=== PATIENT | female | born 1980 | race Two or more races ===

== ENCOUNTER 2023-04-11 11:26 | Emergency (ER) | payer MEDICAID, OTHER ==
[~2023-04-11] VITALS: Ht 170.2 cm; Wt 66.7 kg
[2023-04-11] MEDS ORDERED: cloNIDine HCL 0.1 MG TAB PO ONE (13:45)
[2023-04-11] MEDS ORDERED: ALBUTEROL MEDNEB 2.5 mg/3ml NEB NEB ONE (14:30)
[2023-04-11 14:43] VITALS: BP 186/110; PULSE 89; RESP 18; TEMP 98.5; O2SAT 100
[2023-04-11] MEDS ORDERED: AZIT-43 PO (15:03)
[2023-04-11] MEDS ORDERED: DEXT60TA4 PO (15:03)
[2023-04-11] MEDS ORDERED: PRED20TA2 PO (15:04)
== END 2023-04-11 15:14 | disposition home or self-care (01) ==
LOC: ER 11:26
DX: J20.9 Acute bronchitis, unspecified (principal); J45.909 Unspecified asthma, uncomplicated
CPT/HCPCS: 71046; 94640

== ENCOUNTER 2024-08-13 06:03 | Emergency (ER) | payer MEDICAID ==
[~2024-08-13] VITALS: Ht 172.7 cm; Wt 81.7 kg
[~2024-08-13 06:03] MED LIST: ALBUAER3 IN; AZIT-43 PO; DEXT60TA4 PO; IBUP-1456 PO; LISI-275; LISI10TA34 PO; METH-1182 PO; PRED20TA2 PO
--- NOTE | 2024-08-13 06:59 | ED.PDOC ---
History of Present Illness HPI Comments 44-year-old female with PMHx HTN presents with a chief complaint of headache x 4 days. Patient states that she gets headaches weekly, but attributes it to her HTN. Patient reports that she recently ran out of her Losartan medication, but just recently got a refill this past Wednesday. Patient mentions that she does not check her BP at home. Chief Complaint: Flu like Time Seen by MD: 06:20 Primary Care Provider: Dr. Smith Reviewed Notes: Medications, Allergies Allergies: Coded Allergies: NO KNOWN ALLERGIES (Unverified , 04/11/23) Home Meds Active Scripts Prednisone (Prednisone) 20 Mg Tab, 20 MG PO DAILY@BREAKFAST for 5 Days, #5 MG Prov:VIVIANA VALENCIA NP 04/11/23 Dextromethorphan-Guaifenesin (Mucinex Dm Maximum Streng) 1 Tab Tab, 1 TAB PO BID PRN for 10 Days, #20 TAB 1 Refill Prov:VIVIANA VALENCIA NP 04/11/23 Azithromycin (Azithromycin) 250 Mg Tab, 250 MG PO DAILY MDD 500 for 5 Days, #6 TAB 0 Refills 2 TABLETS ORALLY ON DAY ONE, THEN 1 TABLET ORALLY DAILY FOR 4 DAYS Prov:VIVIANA VALENCIA NP 04/11/23 Albuterol Sulfate (VENTOLIN MDI) 90 Mcg Ih, 90 MCG IN PRN PRN, #1 INH 0 Refills Prov:SRIKANTH MC 04/21/22 Prednisone (Prednisone) 20 Mg Tab, 20 MG PO BID for 5 Days, #10 TAB 0 Refills Prov:SRIKANTH MC 04/21/22 Methocarbamol (Methocarbamol) 750 Mg Tab, 750 MG PO QHSP PRN, #20 TAB Prov:GINA YOUNG 07/31/21 Ibuprofen (Ibuprofen) 800 Mg Tab, 800 MG PO TID PRN, #30 TAB Prov:GINA YOUNG 07/31/21 Lisinopril (Lisinopril) 10 Mg Tab, 10 MG PO DAILY, #30 MG 1 Refill Prov:GEOVANNA ZUNIGA N.P. 06/04/13 Reported Medications Lisinopril (Lisinopril) 5 Mg Tab, DAILY 10/30/09 Information Source: Patient Mode of Arrival: Ambulatory Severity: Moderate Timing: Days Duration: Since onset Prehospital treatment: None Past Medical History PAST MEDICAL HISTORY: Asthma Surgical History: Denies all surgeries BAND HEAD SAW OPERATOR History: No Pertinent BAND HEAD SAW OPERATOR History Family History Family History: Reviewed,noncontributory to illness Social History Smoker: Non-Smoker Alcohol: Denies ETOH Use Drugs: Denies Drug Use Lives In: Home Constitutional: denies: chills, diaphoresis, fatigue, fever, malaise, sweats, weakness, others EENTM: denies: blurred vision, double vision, ear bleeding, ear discharge, ear drainage, ear pain, ear ringing, eye pain, eye redness, hearing loss, mouth pain, mouth swelling, nasal discharge, nose bleeding, nose congestion, nose pain, photophobia, tearing, throat pain, throat swelling, voice changes, others Respiratory: denies: cough, hemoptysis, orthopnea, SOB at rest, shortness of breath, SOB with excertion, stridor, wheezing, others Cardiovascular: denies: chest pain, dizzy spells, diaphoresis, Dyspnea on exertion, edema, irregular heart beat, left arm pain, lightheadedness, palpitations, PND, syncope, others Gastrointestinal: denies: abdomen distended, abdominal pain, blood streaked bowels, constipated, diarrhea, dysphagia, difficulty swallowing, hematemesis, melena, nausea, poor appetite, poor fluid intake, rectal bleeding, rectal pain, vomiting, others Genitourinary: denies: abnormal vagina bleeding, burning, dyspareunia, dysuria, flank pain, frequency, hematuria, incontinence, pain, , vagina discharge, urgency, others Neurological: reports: headache; denies: dizziness, fainting, left sided numbness, left sided weakness, numbness, paresthesia, pre-existing deficit, right sided numbness, right sided weakness, seizure, speech problems, tingling, tremors, weakness, others Musculoskeletal: denies: back pain, gout, joint pain, joint swelling, muscle pain, muscle stiffness, neck pain, others Integumetry: denies: bruises, change in color, change in hair/nails, dryness, laceration, lesions, lumps, rash, wounds, others Allergic/Immunocompromised: denies: Difficulty Healing, Frequent Infections, Hi ves, Itching, others Hematologic/Lymphatic: denies: anemia, blood clots, easy bleeding, easy bruising, swollen glands, others Endocrine: denies: excessive hunger, excessive sweating, excessive thirst, excessive urination, flushing, intolerance to cold, intolerance to heat, unexplained weight gain, unexplained weight loss, others Psychiatric: denies: anxiety, bipolar disorder, depression, hopeless, panic disorder, schizophrenia, sleepless, suicidal, others All Other Systems: Reviewed and Negative Physical Exam General Appearance: No Apparent Distress, Normal HEENT: Normal ENT Inspection, Pharynx Normal, TMs Normal Neck: Full Range of Motion, Non-Tender, Normal, Normal Inspection Respiratory: Chest Non-Tender, Lungs Clear, No Accessory Muscle Use, No Respiratory Distress, Normal Breath Sounds Cardiovascular: No Edema, No JVD, No Murmur, No Gallop, Normal Peripheral Pulses, Regular Rate/Rhythm Breast Exam: Deferred Gastrointestinal: No Organomegaly, Non Tender, No Pulsatile Mass, Normal Bowel Sounds, Soft Genitalia: Deferred Pelvic: Deferred Rectal: Deferred Extremities: No calf tenderness, Normal capillary refill, Normal inspection, Normal range of motion, Non-tender, No pedal edema Musculoskeletal : Apperance: Normal Neurologic: Alert, wheelage clerk II-XII nml as Tested, No Motor Deficits, Normal Affect, Normal Mood, No Sensory Deficits Cerebellar Function: Normal Reflexes: Normal Skin: Dry, Normal Color, Warm Lymphatic: No Adenopathy Was a procedure done? Was a procedure done?: No Differential Dx Considerations may include: hypertensive urgency, poorly controlled hypertension, anxiety, primary headache disorder X-Ray, Labs, Meds, VS Vital Signs Date Time Temp Pulse Resp B/P (MAP) Pulse Ox O2 Delivery O2 Flow Rate FiO2 08/13/24 06:52 79 16 153/92 (112) 97 08/13/24 06:10 98.0 97 95 155/90 (111) 16 98.0 Lab Test 08/13/24 06:16 Range/Units Influenza Type A Antigen Pending Influenza Type B Antigen Pending SARS-CoV-2 Antigen (Rapid) Pending Time of 1ST Reevaluation: 06:50 Reevaluation 1ST: Unchanged Patient Education/Counseling: Diagnosis, Treatment, Prognosis, Need For Follow Up Family Education/Counseling: No Family Present Additional Information Previous visit documents reviewed: None I discussed treatment and results with medical personnel and: Patient pt has weekly headaches chronically, which has no new features. she always attributes them to htn. however, her SBp is only in the 150s. i recommend that she follows up with her doctor for a primary headache disorder evaluation and treatments Departure 1 Departure Time of Disposition: 07:02 Impression: Primary Impression: Cephalgia Qualified Codes: R51.9 - Headache, unspecified Disposition: 01 HOME / SELF CARE / HOMELESS Condition: Good Discharged With: Self Critical Care Note Critical Care Time?: No Stability Stability form required: No Heart Score Heart Score: Heart Score Response (Comments) Value History N/A 0 EKG N/A 0 Age N/A 0 Risk Factors N/A 0 Troponin N/A 0 Total 0 I personally scribed for VALENTIN WELSH MD ([email or web address]) on 08/13/24 at 06:59. Electronically submitted by Merritt Chen ([email or web address]). VALENTIN WELSH MD Aug 13, 2024 06:59
[2024-08-13 07:02] VITALS: BP 139/94; TEMP 98.7
[2024-08-13] MEDS: ACETAMINOPHEN 325 MG TAB PO ONE (07:02)
[2024-08-13 07:03] VITALS: PULSE 89; RESP 17; O2SAT 100
[2024-08-13 07:32] LABS: Rapid Influenza A Negative (Negative); Rapid Influenza B Negative (Negative)
[2024-08-13 07:33] LABS: COVID19 ANTIGEN SOFIA FIA NEGATIVE (NEGATIVE)
== END 2024-08-13 07:07 | disposition home or self-care (01) ==
LOC: ER 06:03
DX: R51.9 Headache, unspecified (principal); J45.909 Unspecified asthma, uncomplicated; I10 Essential (primary) hypertension; Z79.52 Long term (current) use of systemic steroids; Z79.899 Other long term (current) drug therapy; Z20.822 Contact with and (suspected) exposure to COVID-19
CPT/HCPCS: 36415; 87426; 87804

== ENCOUNTER 2024-10-15 06:48 | Emergency (ER) | payer MEDICAID ==
[~2024-10-15] VITALS: Ht 170.2 cm; Wt 81.2 kg
--- NOTE | 2024-10-15 07:08 | ED.PDOC ---
GI ASSESSMENT HPI Comments 44 year old female presents to the ED with a chief complaint of abdominal pain onset 2 weeks. Patient was seen at [facility] on 10/04/24, had blood work and CT scan done, was diagnosed with possible ulcerative colitis, UTI, was prescribed antibiotics. Patient noticed abdominal pain worsen this morning, rates pain 9/10. She has also been experiencing diarrhea, last bowel movement was 3 days ago. She has GI consult on 10/18/24. Denies any PMHx as well as nausea, vomiting, diarrhea, fever, chills, cough, congestion, sore throat, runny nose, headache. No other symptoms or modifying factors present at this time. CT scan impression from [facility] 10/04/24 - moderate circumferential wall thickening edema of the terminal ileum and cecum with mild adjacent inflammatory changes. these findings are nonspecific, however may be seen in the setting of cecal colitis, terminal ileitis, or ulcerative colitis Time Seen by MD: 06:50 Primary Care Provider: Dr. Smith Reviewed Notes: Medications, Allergies Allergies: Coded Allergies: NO KNOWN ALLERGIES (Unverified , 04/11/23) Home Meds Active Scripts Prednisone (Prednisone) 20 Mg Tab, 20 MG PO DAILY@BREAKFAST for 5 Days, #5 MG Prov:VIVIANA VALENCIA NP 04/11/23 Dextromethorphan-Guaifenesin (Mucinex Dm Maximum Streng) 1 Tab Tab, 1 TAB PO BID PRN for 10 Days, #20 TAB 1 Refill Prov:VIVIANA VALENCIA NP 04/11/23 Azithromycin (Azithromycin) 250 Mg Tab, 250 MG PO DAILY MDD 500 for 5 Days, #6 TAB 0 Refills 2 TABLETS ORALLY ON DAY ONE, THEN 1 TABLET ORALLY DAILY FOR 4 DAYS Prov:VIVIANA VALENCIA NP 04/11/23 Albuterol Sulfate (VENTOLIN MDI) 90 Mcg Ih, 90 MCG IN PRN PRN, #1 INH 0 Refills Prov:SRIKANTH MC 04/21/22 Prednisone (Prednisone) 20 Mg Tab, 20 MG PO BID for 5 Days, #10 TAB 0 Refills Prov:SRIKANTH MC 04/21/22 Methocarbamol (Methocarbamol) 750 Mg Tab, 750 MG PO QHSP PRN, #20 TAB Prov:GINA YOUNG 07/31/21 Ibuprofen (Ibuprofen) 800 Mg Tab, 800 MG PO TID PRN, #30 TAB Prov:GINA YOUNG 07/31/21 Lisinopril (Lisinopril) 10 Mg Tab, 10 MG PO DAILY, #30 MG 1 Refill Prov:GEOVANNA ZUNIGA N.P. 06/04/13 Reported Medications Lisinopril (Lisinopril) 5 Mg Tab, DAILY 10/30/09 Information Source: Patient Mode of Arrival: Ambulatory Timing: Weeks Duration: Since onset Prehospital treatment: None Quality: Sharp Vomitus: None Severity: Moderate Recent: None Recent Hx of: None Pain Location: Other (hypogastric) Modifying Factors: Nothing Associated sign and symptoms: Constipation, Abdominal Pain Past Medical History PAST MEDICAL HISTORY: Asthma, DM, HTN Surgical History: Appendectomy BUNDLE CUTTER History: No Pertinent BUNDLE CUTTER History Family History Family History: Reviewed,noncontributory to illness Social History Smoker: Non-Smoker Alcohol: Denies ETOH Use Drugs: Denies Drug Use Lives In: Home Constitutional: denies: chills, diaphoresis, fatigue, fever, malaise, sweats, weakness, others EENTM: denies: blurred vision, double vision, ear bleeding, ear discharge, ear drainage, ear pain, ear ringing, eye pain, eye redness, hearing loss, mouth pain, mouth swelling, nasal discharge, nose bleeding, nose congestion, nose pain, photophobia, tearing, throat pain, throat swelling, voice changes, others Respiratory: denies: cough, hemoptysis, orthopnea, SOB at rest, shortness of breath, SOB with excertion, stridor, wheezing, others Cardiovascular: denies: chest pain, dizzy spells, diaphoresis, Dyspnea on exertion, edema, irregular heart beat, left arm pain, lightheadedness, p alpitations, PND, syncope, others Gastrointestinal: reports: abdominal pain, constipated; denies: abdomen distended, blood streaked bowels, diarrhea, dysphagia, difficulty swallowing, hematemesis, melena, nausea, poor appetite, poor fluid intake, rectal bleeding, rectal pain, vomiting, others Genitourinary: denies: abnormal vagina bleeding, burning, dyspareunia, dysuria, flank pain, frequency, hematuria, incontinence, pain, , vagina discharge, urgency, others Neurological: denies: dizziness, fainting, headache, left sided numbness, left sided weakness, numbness, paresthesia, pre-existing deficit, right sided numbness, right sided weakness, seizure, speech problems, tingling, tremors, weakness, others Musculoskeletal: denies: back pain, gout, joint pain, joint swelling, muscle pain, muscle stiffness, neck pain, others Integumetry: denies: bruises, change in color, change in hair/nails, dryness, laceration, lesions, lumps, rash, wounds, others Allergic/Immunocompromised: denies: Difficulty Healing, Frequent Infections, Hives, Itching, others Hematologic/Lymphatic: denies: anemia, blood clots, easy bleeding, easy bruising, swollen glands, others Endocrine: denies: excessive hunger, excessive sweating, excessive thirst, excessive urination, flushing, intolerance to cold, intolerance to heat, u nexplained weight gain, unexplained weight loss, others Psychiatric: denies: anxiety, bipolar disorder, depression, hopeless, panic disorder, schizophrenia, sleepless, suicidal, others All Other Systems: Reviewed and Negative Physical Exam General Appearance: No Apparent Distress, Normal HEENT: Normal ENT Inspection, Pharynx Normal, TMs Normal Neck: Full Range of Motion, Non-Tender, Normal, Normal Inspection Respiratory: Chest Non-Tender, Lungs Clear, No Accessory Muscle Use, No Respiratory Distress, Normal Breath Sounds Cardiovascular: No Edema, No JVD, No Murmur, No Gallop, Normal Peripheral P ulses, Regular Rate/Rhythm Breast Exam: Deferred Gastrointestinal: No Organomegaly, Non Tender, No Pulsatile Mass, Normal Bowel Sounds, Soft Genitalia: Deferred Pelvic: Deferred Rectal: Deferred Extremities: No calf tenderness, Normal capillary refill, Normal inspection, Normal range of motion, Non-tender, No pedal edema Musculoskeletal : Apperance: Normal Neurologic: Alert, semiconductor packages tester II-XII nml as Tested, No Motor Deficits, Normal Affect, Normal Mood, No Sensory Deficits Cerebellar Function: Normal Reflexes: Normal Skin: Dry, Normal Color, Warm Lymphatic: No Adenopathy Was a procedure done? Was a procedure done?: No GI differential Dx Differential Diagnosis: Constipation, Gastroenteritis, Electrolyte Imbalance Other Differential Diagnosis ulcerative colitis, cecal colitis, terminal ileitis X-Ray, Labs, Meds, VS Vital Signs Date Time Temp Pulse Resp B/P (MAP) Pulse Ox O2 Delivery O2 Flow Rate FiO2 10/15/24 08:35 73 16 126/80 10/15/24 08:16 98.0 70 20 133/84 (100) 100 98.0 10/15/24 08:07 70 20 133/84 10/15/24 07:40 Room Air* 0 21 10/15/24 07:08 98.0 80 16 151/88 (109) 98 98.0 Lab Test 10/15/24 07:39 10/15/24 07:36 Range/Units Urine Color Light-yellow Yellow Urine Clarity Hazy H Clear Urine pH 5.5 5.0-9.0 Urine Specific [place] 1.016 1.001-1.035 Urine Protein Negative Negative Urine Ketones Negative Negative Urine Blood Trace H Negative /uL Urine Nitrite Negative Negative Urine Bilirubin Negative Negative Urine Urobilinogen Normal Negative mg/dL Urine Leukocyte Esterase 2+ Negative /uL Urine RBC 2 0 - 4 /hpf Urine Microscopic WBC 4 0-5 /HPF Urine Squamous Epithelial Cells Mod <5 /hpf Urine Bacteria Few H None Seen /hpf Urine Glucose Normal Normal mg/dL White Blood Count 5.6 4.4-10.8 10^3/uL Red Blood Count 5.66 H 4.0-5.20 10^6/uL Hemoglobin 10.6 L 12.2-16.2 g/dL Hematocrit 33.8 L 36.0-46.0 % Mean Corpuscular Volume 59.7 L 80.0-100.0 fL Mean Corpuscular Hemoglobin 18.8 L 28.0-32.0 pg Mean Corpuscular Hemoglobin Concent 31.5 L 32.0-36.0 g/dL Red Cell Distribution Width 23.1 H 11.8-14.3 % Platelet Count 359 140-450 10^3/uL Mean Platelet Volume 8.5 6.9-10.8 fL Neutrophils (%) (Auto) 67.5 37.0-80.0 % Lymphocytes (%) (Auto) 22.1 10.0-50.0 % Monocytes (%) (Auto) 7.8 0.0-12.0 % Eosinophils (%) (Auto) 1.3 0.0-7.0 % Basophils (%) (Auto) 1.3 0.0-2.0 % Neutrophils # (Auto) 3.8 1.6-8.6 10 ^3/uL Lymphocytes # (Auto) 1.2 0.4-5.4 10 ^3/uL Monocytes # (Auto) 0.4 0-1.3 10 ^3/uL Eosinophils # (Auto) 0.1 0-0.8 10 ^3/uL Basophils # (Auto) 0.1 0-0.2 10 ^3/uL Nucleated Red Blood Cells 0.0 % Sodium Level 136 136-145 mmol/L Potassium Level 4.2 3.5-5.1 mmol/L Chloride Level 104 98-107 mmol/L Carbon Dioxide Level 25 20-31 mmol/L Anion Gap 7 5-15 Blood Urea Nitrogen 11 9-23 mg/dL Creatinine 0.64 0.550-1.02 mg/dL Glomerular Filtration Rate Calc 112 >90 mL/min BUN/Creatinine Ratio 17.2 10.0-20.0 Serum Glucose 111 H 74-106 mg/dL Calcium Level 9.8 8.7-10.4 mg/dL Total Bilirubin 0.7 0.2-1.0 mg/dL Aspartate Amino Transferase (AST) 19 13-40 U/L Alanine Aminotransferase (ALT) 26 7-40 U/L Alkaline Phosphatase 79 46-116 U/L Total Protein 7.0 5.7-8.2 g/dL Albumin 4.5 3.2-4.8 g/dL Lipase 30 12-53 U/L Current Medications Medications (Trade) Dose Ordered Sig/Nidia Route Start Time Stop Time Status Last Admin Ondansetron HCl (Zofran) 4 mg ONCE ONCE IV 10/15/24 07:15 10/15/24 07:16 DC 10/15/24 08:05 Morphine Sulfate 4 mg ONCE ONCE IV 10/15/24 07:15 10/15/24 07:16 DC 10/15/24 08:07 Methylprednisolone Sodium Succinate (Solu Medrol) 125 mg ONCE ONCE IV 10/15/24 07:15 10/15/24 07:16 DC 10/15/24 08:05 44-year-old female presents here with diffuse abdominal pain. Patient states that she was at [facility] approximately a week and a half ago. She has a copy of the CT scan from there. It demonstrates terminal ileitis, differential including ulcerative colitis. She has a GI appointment in 3 days. At this time I have done blood work in the ER including a CBC and a CMP which are within normal limits. I have given her morphine Zofran and 1 dose of Solu-Medrol. She is feeling better however she does continue to have some nausea medicine which I have given her additional dose. Abdomen is soft and nontender doubt small bowel obstruction doubt emergent pathology. At this time she is agreeable to discharge home and is agreeable to using [place] and Colace in the meantime. Strongly advised her it was very important to follow up with the GI physician. Patient agreeable to the plan. Advised to return if her symptoms worsen or persist. Time of 1ST Reevaluation: 07:20 Reevaluation 1ST: Unchanged Time of 2ND Reevaluation: 10:16 Reevaluation 2ND: Improved Patient Education/Counseling: Diagnosis, Treatment, Prognosis, Need For Follow Up Family Education/Counseling: No Family Present Departure 1 Departure Time of Disposition: 10:17 Impression: Primary Impression: Non-specific colitis Disposition: 01 HOME / SELF CARE / HOMELESS Condition: Fair Additional Instructions: Follow up with GI physician later this week as scheduled. Please return to the ER if symptoms worsen or persist. e-Prescriptions Docusate Sodium (Colace) 100 Mg Cap 1 CAP PO BID for 5 Days, #10 CAP Prov: ORLIN DORANTES MD 10/15/24 Hydrocodone-Acetaminophen (Hydrocodone Bitartrate/AC 5-325 mg) 1 Tab Tab 1 TAB PO Q6HPRN PRN, #12 TAB Prov: ORLIN DORANTES MD 10/15/24 Critical Care Note Critical Care Time?: No Stability Stability form required: No Heart Score Heart Score: Heart Score Response (Comments) Value History N/A 0 EKG N/A 0 Age N/A 0 Risk Factors N/A 0 Troponin N/A 0 Total 0 I personally scribed for ORLIN DORANTES MD ([email or web address]) on 10/15/24 at 07:51. Electronically submitted by Nancy Mercado ([email or web address]). ORLIN DORANTES MD October 15, 2024 07:08
[2024-10-15 07:53] LABS: Urine Bacteria FEW /hpf (None Seen); Urine Blood TRACE /uL (Negative); Urine Clarity Hazy (Clear); Urine Color Light-Yellow (Yellow); Urine Protein, UAD Negative (Negative); Urine Specific Gravity 1.016 (1.001-1.035); Urine Squamous Epithelial Cell MOD /hpf (<5); Urine Urobilinogen Normal (Negative); Urine WBC 4 /HPF (0-5); Urine pH 5.5 (5.0-9.0)
[2024-10-15 07:54] LABS: Basophils # (auto) 0.1 10 ^3/uL (0-0.2); Basophils % (auto) 1.3 % (0.0-2.0); Eosinophils # (auto) 0.1 10 ^3/uL (0-0.8); Lymphocytes # (auto) 1.2 10 ^3/uL (0.4-5.4); Monocytes # (auto) 0.4 10 ^3/uL (0-1.3); White Blood Cell 5.6 10^3/uL (4.4-10.8)
[2024-10-15 07:55] LABS: Eosinophils % (auto) 1.3 % (0.0-7.0); Hematocrit 33.8 % (36.0-46.0); Hemoglobin 10.6 g/dL (12.2-16.2); Lymphocytes % (auto) 22.1 % (10.0-50.0); Mean Corpuscular Hemoglobin 18.8 pg (28.0-32.0); Mean Corpuscular Hgb Conc. 31.5 g/dL (32.0-36.0); Mean Corpuscular Volume 59.7 fL (80.0-100.0); Monocytes % (auto) 7.8 % (0.0-12.0); Neutrophils # (auto) 3.8 10 ^3/uL (1.6-8.6); Neutrophils % (auto) 67.5 % (37.0-80.0); Platelet Count (auto) 359 10^3/uL (140-450); Red Blood Cells 5.66 10^6/uL (4.0-5.20); Red Cell Distribution Width 23.1 % (11.8-14.3)
[2024-10-15] MEDS: ONDANSETRON HCL 4 MG/2 ML VIAL IV ONE ×2 (08:05→10:30)
[2024-10-15] MEDS: methylPREDNISolone SOD SUCC 125 MG/2 ML VL IV ONE (08:05)
[2024-10-15] MEDS: MORPHINE SULFATE 4 MG/ML SYR/VIAL IV ONE (08:07)
[2024-10-15 08:09] LABS: Alanine Aminotransferase 26 U/L (7-40); Albumin 4.5 g/dL (3.2-4.8); Alkaline Phosphatase 79 U/L (46-116); Anion Gap 7 (5-15); Aspartate Aminotransferase 19 U/L (13-40); BUN/Creatinine Ratio 17.2 (10.0-20.0); Blood Urea Nitrogen 11 mg/dL (9-23); Calcium 9.8 mg/dL (8.7-10.4); Carbon Dioxide 25 mmol/L (20-31); Chloride 104 mmol/L (98-107); Potassium 4.2 mmol/L (3.5-5.1); Sodium 136 mmol/L (136-145)
[2024-10-15 08:10] LABS: Bilirubin, Total 0.7 mg/dL (0.2-1.0)
[2024-10-15 08:14] LABS: Glucose 111 mg/dL (74-106)
[2024-10-15 08:16] VITALS: TEMP 98
[2024-10-15 08:30] LABS: Lipase 30 U/L (12-53)
[2024-10-15 10:00] VITALS: BP 121/78; PULSE 70; RESP 13; O2SAT 97
[2024-10-15] MEDS ORDERED: HYDR-4902 PO (10:20)
[2024-10-15] MEDS ORDERED: DOCU-94 PO (10:20)
== END 2024-10-15 10:34 | disposition home or self-care (01) ==
LOC: ER 06:48
DX: K52.9 Noninfective gastroenteritis and colitis, unspecified (principal); J45.909 Unspecified asthma, uncomplicated; E11.9 Type 2 diabetes mellitus without complications; I10 Essential (primary) hypertension; Z90.49 Acquired absence of other specified parts of digestive tract; Z79.899 Other long term (current) drug therapy; Z79.52 Long term (current) use of systemic steroids
CPT/HCPCS: 36415; 80053; 81001; 83690; 85025; 96374; 96375; 96376; 99284; J2270; J2405; J2919

== ENCOUNTER 2024-10-23 02:24 | Emergency (ER) | payer MEDICAID ==
[~2024-10-23] VITALS: Ht 170.2 cm; Wt 79.7 kg
[~2024-10-23 02:24] MED LIST changes: +DOCU-94 PO; +HYDR-4902 PO
--- NOTE | 2024-10-23 03:04 | ED.PDOC ---
Back pain HPI HPI Comments C/C: PATIENT STATES THAT SHE HAS PAIN AND SWELLING IN BILATERAL FEET FOR THE PAST 2 DAYS. PATIENT STANDS ON HER FEET ALL DAY FOR WORK. NO VISIBLE SWELLING NOTED. ALL VSS. DENIES NUMBNESS, WEAKNESS, CALF PAIN, CHEST PAIN, SHORTNESS OF BREATH, DIFFICULTY BREATHING, OR KNOWN INJURY. Chief Complaint: Lower Extremity Time Seen by MD: 02:33 Primary Care Provider: Dr. Smith Reviewed Notes: Nurses Notes, Medications, Allergies Allergies: Coded Allergies: NO KNOWN ALLERGIES (Unverified , 04/11/23) Home Meds Active Scripts Docusate Sodium (Colace) 100 Mg Cap, 1 CAP PO BID for 5 Days, #10 CAP Prov:ORLIN DORANTES MD 10/15/24 Hydrocodone-Acetaminophen (Hydrocodone Bitartrate/AC 5-325 mg) 1 Tab Tab, 1 TAB PO Q6HPRN PRN, #12 TAB Prov:ORLIN DORANTES MD 10/15/24 Prednisone (Prednisone) 20 Mg Tab, 20 MG PO DAILY@BREAKFAST for 5 Days, #5 MG Prov:VIVIANA VALENCIA NP 04/11/23 Dextromethorphan-Guaifenesin (Mucinex Dm Maximum Streng) 1 Tab Tab, 1 TAB PO BID PRN for 10 Days, #20 TAB 1 Refill Prov:VIVIANA VALENCIA NP 04/11/23 Azithromycin (Azithromycin) 250 Mg Tab, 250 MG PO DAILY MDD 500 for 5 Days, #6 TAB 0 Refills 2 TABLETS ORALLY ON DAY ONE, THEN 1 TABLET ORALLY DAILY FOR 4 DAYS Prov:VIVIANA VALENCIA NP 04/11/23 Albuterol Sulfate (VENTOLIN MDI) 90 Mcg Ih, 90 MCG IN PRN PRN, #1 INH 0 Refills Prov:SRIKANTH MC 04/21/22 Prednisone (Prednisone) 20 Mg Tab, 20 MG PO BID for 5 Days, #10 TAB 0 Refills Prov:SRIKANTH MC 04/21/22 Methocarbamol (Methocarbamol) 750 Mg Tab, 750 MG PO QHSP PRN, #20 TAB Prov:GINA YOUNG 07/31/21 Ibuprofen (Ibuprofen) 800 Mg Tab, 800 MG PO TID PRN, #30 TAB Prov:GINA YOUNG 07/31/21 Lisinopril (Lisinopril) 10 Mg Tab, 10 MG PO DAILY, #30 MG 1 Refill Prov:GEOVANNA ZUNIAG N.P. 06/04/13 Reported Medications Lisinopril (Lisinopril) 5 Mg Tab, DAILY 10/30/09 Mode of Arrival: Ambulatory Past Medical History PAST MEDICAL HISTORY: Asthma, DM, HTN Surgical History: Appendectomy MANAGER SHIFT History: No Pertinent MANAGER SHIFT History Family History Family History: Reviewed,noncontributory to illness Social History Smoker: Non-Smoker Alcohol: Denies ETOH Use Drugs: Denies Drug Use Lives In: Home Constitutional: denies: chills, diaphoresis, fatigue, fever, malaise, sweats, weakness, others EENTM: denies: blurred vision, double vision, ear bleeding, ear discharge, ear drainage, ear pain, ear ringing, eye pain, eye redness, hearing loss, mouth pain, mouth swelling, nasal discharge, nose bleeding, nose congestion, nose pain, photophobia, tearing, throat pain, throat swelling, voice changes, others Respiratory: denies: cough, hemoptysis, orthopnea, SOB at rest, shortness of breath, SOB with excertion, stridor, wheezing, others Cardiovascular: denies: chest pain, dizzy spells, diaphoresis, Dyspnea on exertion, edema, irregular heart beat, left arm pain, lightheadedness, palpitations, PND, syncope, others Gastrointestinal: denies: abdomen distended, abdominal pain, blood streaked bowels, constipated, diarrhea, dysphagia, difficulty swallowing, hematemesis, melena, nausea, poor appetite, poor fluid intake, rectal bleeding, rectal pain, vomiting, others Genitourinary: denies: abnormal vagina bleeding, burning, dyspareunia, dysuria, flank pain, frequency, hematuria, incontinence, pain, , vagina discharge, urgency, others Neurological: denies: dizziness, fainting, headache, left sided numbness, left sided weakness, numbness, paresthesia, pre-existing deficit, right sided numbness, right sided weakness, seizure, speech problems, tingling, tremors, weakness, others Musculoskeletal: reports: others (BILATERAL FOOT PAIN AND SWELLING); denies: back pain, gout, joint pain, joint swelling, muscle pain, muscle stiffness, neck pain Integumetry: denies: bruises, change in color, change in hair/nails, dryness, laceration, lesions, lumps, rash, wounds, others Allergic/Immunocompromised: denies: Difficulty Healing, Frequent Infections, Hives, Itching, others Hematologic/Lymphatic: denies: anemia, blood clots, easy bleeding, easy bruising, swollen glands, others Endocrine: denies: excessive hunger, excessive sweating, excessive thirst, excessive urination, flushing, intolerance to cold, intolerance to heat, unexplained weight gain, unexplained weight loss, others Psychiatric: denies: anxiety, bipolar disorder, depression, hopeless, panic disorder, schizophrenia, sleepless, suicidal, others Physical Exam General Appearance: No Apparent Distress, Normal HEENT: Pharynx Normal Neck: Full Range of Motion, Non-Tender Respiratory: Lungs Clear, No Respiratory Distress, Normal Breath Sounds Cardiovascular: No Edema, No JVD, No Murmur, No Gallop, Normal Peripheral Pulses, Regular Rate/Rhythm Breast Exam: Deferred Gastrointestinal: Non Tender, Soft Genitalia: Deferred Pelvic: Deferred Rectal: Deferred Extremities: Normal capillary refill, Normal inspection, Normal range of motion, Non-tender, No pedal edema Musculoskeletal : Location: Bilateral Extremity Location: Foot (MODERATE TENDERNESS BILATERAL FEET MEDIAL ASPECT NO NOTED SWELLING ECCHYMOSIS, ERYTHEMA, ABRASIONS LESIONS OR LACERATIONS. STRENGTH SENSORY MOTION INTACT POSITIVE PEDAL PULSES) Apperance: Normal Neurologic: Alert, center rep II-XII nml as Tested, No Motor Deficits, Normal Affect, Normal Mood, No Sensory Deficits Cerebellar Function: Normal Reflexes: Normal Skin: Dry, Normal Color, Warm Lymphatic: No Adenopathy Was a procedure done? Was a procedure done?: No Back Pain Differential Dx Differential Diagnosis: Musculoskeletal Pain, Strain X-Ray, Labs, Meds, VS Vital Signs Date Time Temp Pulse Resp B/P (MAP) Pulse Ox O2 Delivery O2 Flow Rate FiO2 10/23/24 02:36 97.8 83 16 130/77 (94) 99 97.8 X-Ray, Labs, Meds, VS Comment PATIENT GIVEN TORADOL AND DECADRON REPORTS IMPROVEMENT IN PAIN FUNCTION REQUESTI NG DISCHARGE AT THIS TIME. SCRIPT TRIAL OF MEDROL DOSEPAK ADVISED TAKE MEDICATIONS PRESCRIBED SIDE EFFECTS DISCUSSED. ADVISED TO GET PROPER SHOE WEAR CONSIDER INSERTS CONSIDER FOLLOWING UP FOR PODIATRY IF SYMPTOMS PERSIST. ER RETURN PRECAUTIONS GIVEN PATIENT INDICATES UNDERSTANDING AGREES WITH DISCHARGE PLAN Time of 1ST Reevaluation: 03:45 Reevaluation 1ST: Unchanged Time of 2ND Reevaluation: 04:33 Reevaluation 2ND: Improved Patient Education/Counseling: Diagnosis, Treatment, Prognosis, Need For Follow Up Family Education/Counseling: Diagnosis, Treatment, Prognosis, Need For Follow Up Departure 1 Departure Time of Disposition: 04:32 Impression: Primary Impression: Fasciitis Disposition: 01 HOME / SELF CARE / HOMELESS Condition: Stable e-Prescriptions Methylprednisolone (Medrol Dosepak) 4 Mg [place] 4 MG PO UD for 6 Days, #21 TAB UAD Prov: JEANMARIE ALFARO 10/23/24 Discharged With: Relative Critical Care Note Critical Care Time?: No Stability Stability form required: JEANMARIE Hudson October 23, 2024 03:03
[2024-10-23 04:30] VITALS: BP 124/70; PULSE 79; RESP 16; TEMP 98; O2SAT 99
[2024-10-23] MEDS ORDERED: METH4PAK PO (04:33)
[2024-10-23] MEDS: DexAMETHasone SOD PHOS 10MG/1ML VIAL INJ IM ONE (04:48)
[2024-10-23] MEDS: KETOROLAC TROMETH 60MG/2ML VIAL IM ONE (04:48)
== END 2024-10-23 04:55 | disposition home or self-care (01) ==
LOC: ER 02:24
DX: M72.9 Fibroblastic disorder, unspecified (principal); J45.909 Unspecified asthma, uncomplicated; I10 Essential (primary) hypertension; E11.9 Type 2 diabetes mellitus without complications; Z79.52 Long term (current) use of systemic steroids; Z79.899 Other long term (current) drug therapy; Z90.49 Acquired absence of other specified parts of digestive tract
CPT/HCPCS: 96372; 99284; J1100; J1885